=== PATIENT | female | born 1965 | race Caucasian/White ===

== ENCOUNTER 2021-03-17 12:11 | Observation (INO) | payer OTHER ==
[2021-03-17] MEDS ORDERED: Ketorolac Tromethamine 30 MG/ML VIAL ONE (12:49)
[2021-03-17] MEDS ORDERED: HYDROcodone/Acetaminophen 5/325 mg Tablet ONE (14:10)
[2021-03-17] MEDS ORDERED: Lidocaine 1% (PF) 30 ML VIAL ONE (14:40)
[2021-03-17 15:44] LABS: #Eosinphils 0.7 thou/uL (0.0-0.7); #Lymphocytes 1.9 thou/uL (1.20-3.40); #Monocytes 0.6 thou/uL (0.11-0.59); #Neutrophils 3.4 thou/uL (1.40-6.50); %Basophils 0.2 % (0.0-1.0); %Eosinophils 10.1 % (0.0-10.0); %Monocytes 8.5 % (0.0-10.0); %Neutrophils 52.2 % (42.0-75.0); Hemoglobin 14.5 g/dL (12.0-16.0); Mean Corpuscular HGB CONC 35.4 g/dL (32.0-36.0); Mean Corpuscular Hemoglobin 34.3 pg (27.0-31.0); Mean Corpuscular Volume 97.1 fL (78.0-98.0); Mean Platelet Volume 7.3 fL (7.4-10.4); Platelet Count 316 thou/uL (130-400); RBC Distribution Width 10.9 % (11.5-14.5); Red Blood Cell (RBC) Count 4.23 mill/uL (4.20-5.40); White Blood Cell (WBC) Count 6.6 thou/uL (4.8-10.8)
[2021-03-17 15:57] LABS: INR-International Normal Ratio 0.9; Prothrombin Time 12.7 sec (12.0-14.7)
[2021-03-17 16:06] LABS: ALT (SGPT) 16 U/L (8-55); AST (SGOT) 21 U/L (5-34); Alkaline Phosphatase 91 U/L (40-110); Anion Gap 12 mmol/L (10-20); BUN (Urea Nitrogen) 13 mg/dL (9.8-20.1); Bilirubin, Total 0.5 mg/dL (0.2-1.2); Calc. Creatinine Clearance 0 mL/min (70-130); Calcium 9.5 mg/dL (7.8-10.44); Carbon Dioxide 30 mmol/L (22-29); Chloride 101 mmol/L (98-107); Globulin 2.4 g/dL (2.4-3.5); Glucose 88 mg/dL (70-105); Magnesium 2.1 mg/dL (1.6-2.6); Phosphorus 3.4 mg/dL (2.3-4.7); Potassium 4.3 mmol/L (3.5-5.1); Protein, Total 6.4 g/dL (6.0-8.3); Sodium 139 mmol/L (136-145)
[2021-03-17] MEDS ORDERED: Fentanyl 100 MCG/2 ML VIAL ONE (16:09)
[2021-03-17] MEDS ORDERED: PROPOFOL 20 ML ONE (16:09)
[2021-03-17] MEDS ORDERED: Dextrose 50% Abboject 50 ML SYRINGE SLOW IVP PRN (16:34)
[2021-03-17] MEDS ORDERED: Ondansetron PF 4 MG/2 ML Vial IVP PRN (16:34)
[2021-03-17] MEDS ORDERED: Morphine 4 MG/ML VIAL SLOW IVP PRN (16:34)
[2021-03-17] MEDS ORDERED: hydrALAZINE 20 MG/ML VIAL SLOW IVP PRN (16:34)
[2021-03-17] MEDS ORDERED: Dextrose 5% in Water 1,000 ML IV PRN (16:34)
[2021-03-17] MEDS ORDERED: Cyclobenzaprine 10 MG TAB PO PRN (16:38)
[2021-03-17] MEDS ORDERED: traMADol HCl 50 MG TAB PO PRN (16:38)
[2021-03-17] MEDS ORDERED: Acetaminophen 500 MG TAB PO SCH (16:45)
[2021-03-17] MEDS ORDERED: CEFAZOLIN 2 GM in Premix Bag 1 BAG IVPB SCH (17:15)
[2021-03-17] MEDS ORDERED: Acetaminophen 500 MG TAB ONE (19:37)
[2021-03-17] MEDS: Acetaminophen 500 MG TAB PO SCH (21:01)
[2021-03-17] MEDS: Gabapentin 300 MG CAP PO SCH (21:31)
[2021-03-17] MEDS: Famotidine 20 MG TAB PO SCH (21:31)
[2021-03-17] MEDS: Senokot S 8.6-50 MG TAB PO SCH (21:31)
[2021-03-17] MEDS: Ibuprofen 200 MG TAB PO SCH (21:32)
[2021-03-17] MEDS: traMADol HCl 50 MG TAB PO PRN (22:16)
[2021-03-17 22:51] VITALS: BMI 23.7
[2021-03-17 23:36] LABS: SARS-CoV-2 NAA Rapid Test Not Detected (NotDetected)
[2021-03-18] MEDS ORDERED: Sodium Chloride 0.9% 1,000 ML IV SCH (00:01)
[2021-03-18] MEDS ORDERED: Fentanyl 100 MCG/2 ML VIAL SLOW IVP PRN (00:06)
[2021-03-18] MEDS: Acetaminophen 500 MG TAB PO SCH ×3 (03:27→15:45)
[2021-03-18] MEDS: traMADol HCl 50 MG TAB PO PRN (05:46)
[2021-03-18] MEDS: Ibuprofen 200 MG TAB PO SCH ×2 (05:46→15:30)
[2021-03-18] MEDS ORDERED: Meclizine HCl 25 MG TAB PO PRN (07:39)
[2021-03-18] MEDS: Famotidine 20 MG TAB PO SCH (08:21)
[2021-03-18] MEDS: Senokot S 8.6-50 MG TAB PO SCH (08:22)
[2021-03-18] MEDS ORDERED: OXcarbazepine 300 MG TAB PO SCH (09:00)
[2021-03-18] MEDS ORDERED: Venlafaxine HCl XR 150 MG CAP PO SCH (09:00)
[2021-03-18] MEDS ORDERED: Polyethylene Glycol 3350 17 GM Packet PO SCH (09:00)
[2021-03-18] MEDS: Gabapentin 300 MG CAP PO SCH ×2 (09:31→17:13)
[2021-03-18] MEDS ORDERED: ceFAZolin 2 GM/DEX 5% 100 ML BAG ONE (11:46)
[2021-03-18] MEDS ORDERED: Midazolam HCl 2 mg/2 ml Vial ONE (12:05)
[2021-03-18] MEDS ORDERED: Fentanyl 100 MCG/2 ML VIAL ONE ×2 (12:05→12:14)
[2021-03-18] MEDS ORDERED: Bupivacaine PF 0.5% 30 ML VIAL ONE (12:07)
[2021-03-18] MEDS ORDERED: EPINEPHrine 1 MG/ML AMP ONE (12:07)
[2021-03-18] MEDS ORDERED: Bupivacaine HCl 0.5%/Epinephrine 1:200,000/PF 30 ml Vial ONE (12:57)
[2021-03-18] MEDS ORDERED: Lidocaine 1% PF 5 ML VIAL ONE (12:57)
[2021-03-18] MEDS ORDERED: PROPOFOL 200 MG/20 ML VIAL ONE (12:57)
[2021-03-18] MEDS ORDERED: Dexamethasone 20 MG/5 ML VIAL ONE (12:57)
[2021-03-18] MEDS ORDERED: Ondansetron PF 4 MG/2 ML Vial ONE (12:57)
[2021-03-18] MEDS ORDERED: Promethazine HCl 25 MG/ML VIAL IM PRN (14:14)
[2021-03-18] MEDS ORDERED: Ketorolac Tromethamine 30 MG/ML VIAL IVP PRN (14:14)
[2021-03-18] MEDS ORDERED: Ondansetron HCl/PF 4 MG/2 ML Vial IVP PRN (14:14)
[2021-03-18] MEDS ORDERED: Promethazine HCl 25 MG/ML VIAL IVPB PRN (14:14)
[2021-03-18 15:53] VITALS: TEMP 97.4
[2021-03-18 18:46] VITALS: BP 128/64
== END 2021-03-18 19:47 | disposition home or self-care (01) ==
LOC: ERS 12:11 → INTOOBSV 16:38 → ONC 16:38
PROVIDERS: ADMIT Surgery; ATTEND Surgery
PROC: 0PSJ04Z Reposition Left Radius with Internal Fixation Device, Open Approach (ICD-10-PCS; principal; 2021-03-18)
PROC: 3E0T3BZ Introduction of Anesthetic Agent into Peripheral Nerves and Plexi, Percutaneous Approach (ICD-10-PCS; 2021-03-18)
DX: S52.572A Other intraarticular fracture of lower end of left radius, initial encounter for closed fracture (principal); F17.210 Nicotine dependence, cigarettes, uncomplicated; Z79.899 Other long term (current) drug therapy; Z88.2 Allergy status to sulfonamides; Z88.5 Allergy status to narcotic agent; Z20.822 Contact with and (suspected) exposure to COVID-19; W18.30XA Fall on same level, unspecified, initial encounter
CPT/HCPCS: 25600; 36415; 71045; 76000; 80053; 83735; 84100; 85025; 85610; 85730; 93005; 94640; 96372; 96374; 99152; C1713; G0378; J0171; J1100; J1885; J2001; J2250; J2405; J2704; J3010; J7050; J7620; S0020; U0002